=== PATIENT | male | born 1995 | race African-American/Black ===

== ENCOUNTER 2024-01-19 22:24 | Outpatient (REF) | payer MEDICAID, SELFPAY ==
[2024-01-24 23:48] LABS: Midnight Cortisol <50 ng/dL (<100)
== END 2024-01-19 22:25 | disposition home or self-care (01) ==
LOC: LBN 22:24
PROVIDERS: Visit Provider Naturopath
DX: E27.49 Other adrenocortical insufficiency (principal)
CPT/HCPCS: 82530